=== PATIENT | female | born 1950 | race Hispanic/Latino ===

== ENCOUNTER 2018-12-14 09:39 | Observation (INO) | payer MEDICARE ==
[~2018-12-14] VITALS: Ht 157.5 cm; Wt 73.5 kg
[2018-12-14] MEDS ORDERED: ONDANSETRON HCL INJ 2MG/ML 2ML 2 MG/ML VIAL IV NR (10:20)
[2018-12-14] MEDS ORDERED: SODIUM CHLORIDE 0.9% 1000ML 1,000 ML IV STA (10:20)
--- NOTE | 2018-12-14 11:22 | Diagnostic Imaging Report ---
Examination: CT head without contrast Clinical Indication: Headache. Confusion. Vomiting. Technique: Transaxial noncontrast images from the skull base through the vertex were obtained. Sagittal and coronal reformatted images were done. Dose modulation, iterative reconstruction, and/or weight based adjustment of the mA/kV was utilized to reduce the radiation dose to as low as reasonably achievable. Comparison: None. Findings: Scalp: No abnormalities. Bones: Intact. No fractures. No blastic or lytic lesions. Brain sulci: Appropriate for patient's age. Ventricles: Normal in size and configuration. No hydrocephalus. . Extra-axial space: No abnormalities. Parenchyma: There are subtle patchy areas of low-attenuation within subcortical and periventricular white matter, nonspecific, but could represent microvascular ischemic disease. No masses, hemorrhage, or acute or chronic cortical based vascular insults. Suprasellar region: No abnormalities. Craniocervical junction: The foramen magnum is patent. No Chiari one malformation. Impression: 1. No acute intracranial finding. 2. Mild chronic microvascular ischemic change. Signed by: Dr. Nallely Jarvis M.D. on 12/14/2018 11:18 AM
--- NOTE | 2018-12-14 11:27 | Diagnostic Imaging Report ---
EXAM: CHEST SINGLE (PORTABLE) DATE: 12/14/2018 10:20 AM INDICATION: Hypertension COMPARISON: None FINDINGS: Lines and tubes: None Heart size normal. No focal pulmonary opacity, pleural effusion or pneumothorax. Upper abdomen unremarkable. No acute bony abnormality. IMPRESSION: No evidence for acute disease. Signed by: Dr. Omar Israel M.D. on 12/14/2018 11:24 AM
[2018-12-14 11:32] LABS: BASOPHILS % 0.4 % (0.0-1.0); EOSINOPHILS % 0.3 % (0.0-6.0); HEMATOCRIT 39.8 % (34.2-44.1); HEMOGLOBIN 13.8 g/dL (12.0-16.0); LYMPHOCYTES # (AUTO) 1.1 (1.0-3.2); LYMPHOCYTES % 11.4 % (18.0-39.1); MEAN CORPUSCULAR HEMOGLOBIN 31.6 pg (28-32); MEAN CORPUSCULAR HGB CONC 34.7 g/dL (31-35); MEAN CORPUSCULAR VOLUME 91.1 fL (81-99); MONOCYTES # (AUTO) 0.4 (0.2-0.8); MONOCYTES % 4.3 % (4.4-11.3); NEUTROPHILS # (AUTO) 7.6 (2.1-6.9); NEUTROPHILS % 83.2 % (38.7-80.0); PLATELET COUNT 267 x10e3/uL (140-360); RED BLOOD COUNT 4.37 x10e6/uL (3.6-5.1); RED CELL DISTRIBUTION WIDTH 12.1 % (11.7-14.4)
[2018-12-14 11:41] LABS: BILIRUBIN,URINE NEGATIVE (NEGATIVE); CLARITY,URINE CLEAR (CLEAR); COLOR,URINE YELLOW (YELLOW); KETONES,URINE NEGATIVE (NEGATIVE); LEUKOCYTE ESTERASE ,URINE NEGATIVE (NEGATIVE); NITRITE,URINE NEGATIVE (NEGATIVE); PROTEIN,URINE DIPSTICK NEGATIVE (NEGATIVE); URINE UROBILINOGEN 0.2 mg/dL (0.2 - 1)
[2018-12-14 11:49] LABS: INR 0.95; PROTHROMBIN TIME 13.2 seconds (11.9-14.5)
[2018-12-14 11:50] LABS: PARTIAL THROMBOPLASTIN TIME 27.5 seconds (23.8-35.5)
[2018-12-14 12:00] LABS: ALANINE AMINOTRANSFERASE 16 IU/L (0-55); ALBUMIN 3.9 g/dL (3.5-5.0); ALKALINE PHOSPHATASE 104 IU/L (40-150); AMYLASE 81 U/L (25-125); ANION GAP 13.8 mmol/L (8-16); BLOOD UREA NITROGEN 16 mg/dL (7-26); BUN/CREATININE RATIO 24 (6-25); CALCIUM 9.8 mg/dL (8.4-10.2); CARBON DIOXIDE 27 mmol/L (22-29); CHLORIDE 104 mmol/L (98-107); CREATINE KINASE 47 IU/L (29-168); CREATININE, SERUM 0.66 mg/dL (0.57-1.11); EST GLOMERULAR FILTRATION RATE > 60 ML/MIN (60-); GLUCOSE 112 mg/dL (74-118); LIPASE 36 U/L (8-78); MAGNESIUM 2.3 MG/DL (1.3-2.1); POTASSIUM 3.8 mmol/L (3.5-5.1); SODIUM 141 mmol/L (136-145)
[2018-12-14 12:15] LABS: EPITHELIAL CELLS,URINE FEW /LPF; RBC,URINE 0-5 /HPF (0-5)
[2018-12-14] MEDS ORDERED: ONDANSETRON HCL INJ 2MG/ML 2ML 2 MG/ML VIAL IV PRN (13:30)
--- OUTSIDE RECORDS SUMMARY | 2018-12-14 13:36 | XMS REPORT ---
Author Author [facility] Address Unknown Phone Unavailable Care Team Providers Care Small Business Banking Officer Name Role Phone Angus RICHARDSON Unavailable Unavailable Problems This patient has no known problems. Allergies, Adverse Reactions, Alerts This patient has no known allergies or adverse reactions. Medications This patient has no known medications. Results Test Description Test Time Test Comments Text Results Atomic Results Result Comments CHEST SINGLE (PORTABLE) 2018-12-14 11:22:00 [place] [address] Patient Name: EDITH PATHAK MR #: [id number] : 1950 Age/Sex: 68/F Req #: [id number] Adm Physician: Ordered by: MONA FLORIAN CONSULTING GROUP ANALYST Report #: [id number] Location: ER Room/Bed: Procedure: [id number] DX/CHEST SINGLE (PORTABLE) Exam Date: Exam Time: REPORT STATUS: Signed EXAM: CHEST SINGLE (PORTABLE) DATE: 12/14/2018 10:20 AM INDICATION: Hypertension COMPARISON: None FINDINGS: Lines and tubes: None Heart size normal. No focal pulmonary opacity, pleural effusion or pneumothorax. Upper abdomen unremarkable. No acute bony abnormality. IMPRESSION: No evidence for acute disease. Signed by: Dr. Demarco White M.D. on 12/14/2018 11:24 AM Dictated By: DEMARCO WHITE MD Transcribed By: CINDY on 12/14/184 COPY TO: MONA FLORIAN NP CT BRAIN WO 2018-12-14 11:17:00 [place] [id number] [place] [id number] Patient Name: EDITH PATHAK MR #: [id number] : 1950 Age/Sex: 68/F Req #: [id number] Adm Physician: Ordered by: MONA FLORIAN NP Report #: [id number] Location: ER Room/Bed: Procedure: [id number] CT/CT BRAIN WO Exam Date: Exam Time: REPORT STATUS: Signed Examination: CT head without contrast Clinical Indication: Headache. Confusion. Vomiting. Technique: Transaxial noncontrast images from the skull base through the vertex were obtained. Sagittal and coronal reformatted images were done. Dose modulation, iterative reconstruction, and/or weight based adjustment of the mA/kV was utilized to reduce the radiation dose to as low as reasonably achievable. Comparison: None. Findings: Scalp: No abnormalities. Bones: Intact. No fractures. No blastic or lytic lesions. Brain sulci: Appropriate for patient's age. Ventricles: Normal in size and configuration. No hydrocephalus. . Extra-axial space: No abnormalities. Parenchyma: There are subtle patchy areas of low- attenuation within subcortical and periventricular white matter, nonspecific, but could represent microvascular ischemic disease. No masses, hemorrhage, or acute or chronic cortical based vascular insults. Suprasellar region: No abnormalities. Craniocervical junction: The foramen magnum is patent. No C hiari one malformation. Impression: 1. No acute intracranial finding. 2. Mild chronic microvascular ischemic change. Signed by: Dr. Nallely Jarvis M.D. on 12/14/2018 11:18 AM Dictated By: NALLELY LIMON MD 17 Transcribed By: CINDY on 12/14/181117 COPY TO: MONA FLORIAN NP
--- NOTE | 2018-12-14 17:30 | NUR ---
DR MCLAIN IN ROOM ASSESSING PT
[2018-12-14 18:49] VITALS: BP 159/82
[2018-12-14] MEDS: PROMETHAZINE 25MG/ NS 50ML (IV) IV SCH (19:03)
[2018-12-14] MEDS: METHYLPREDNISOLONE SOD SUCC 125 MG/2ML VIAL IV SCH (19:03)
[2018-12-14] MEDS: SODIUM CHLORIDE 0.9% 1000ML 1,000 ML IV SCH (19:03)
--- NOTE | 2018-12-14 19:06 | Diagnostic Imaging Report ---
History: Vomiting, high blood pressure Comparison studies: Head CT on 12/14/2018 Technique: Sagittal T2; axial DWI, FLAIR, MPGR, T1, Coronal FLAIR. Intravenous contrast: None Findings: Scalp: Normal in signal . No masses . Bone marrow: Normal in signal intensity. Extra-axial: No masses or fluid collections. Brain sulci: Appropriate for age. Ventricles: Normal in size . No hydrocephalus . Parenchyma: A few punctate T2 FLAIR hyperintense foci in the supratentorial white matter are nonspecific small vessel ischemic changes.No masses, hemorrhage, acute or chronic cortical ischemic insults. Suprasellar region: No abnormalities. Craniocervical junction: No abnormalities. Patent foramen magnum. No Chiari one malformation. Vessels: Normal flow-voids in the arteries and sinuses. Incidental mucosal thickening in the maxillary and ethmoid air cells bilaterally. IMPRESSION: 1. No intracranial abnormalities. 2. No changes compared to the head CT done earlier today. 3. Persistent minimal supratentorial white matter vessel ischemic changes. Signed by: Dr. Gordo Dunbar M.D. on 12/14/2018 7:02 PM
--- NOTE | 2018-12-14 19:39 | NUR ---
Got report from previous nurse. call light within reach. Patient in bed. A&O x 3. No pain or distress. Family at bedside.
[2018-12-14 20:00] VITALS: BP 116/71
[2018-12-14 20:47] VITALS: BP 116/71
[2018-12-14] MEDS: VALPROATE SOD INJ 500 MG in SODIUM CHLORIDE 0.9% 100 ML 100 ML IV SCH (21:24)
[2018-12-14] MEDS ORDERED: ALBUTEROL0.63 MG/3 (22:07)
[2018-12-14] MEDS ORDERED: ALENDRONATE SOD35 MG PO (22:12)
[2018-12-14] MEDS ORDERED: BENAZEPRIL-HCT1 EAC1 PO (22:12)
--- NOTE | 2018-12-14 23:41 | Consultation ---
DATE OF CONSULTATION: 12/14/2018 Neurology Consult Note HISTORY OF PRESENT ILLNESS: Ms. Parks is a 68-year-old right-hand dominant woman with past medical history significant for hypertension, bronchitis, and osteoporosis, admitted to [facility] on December 14, 2018, with a headache and dizziness. Ms. Parks describes her headache as follows: The pain is diffuse. It is described as throbbing and rated a 10/10. Associated with the headache are photophobia, phonophobia, nausea, vomiting, and dizziness, which is further described as a vertiginous sensation. Ms. Parks endorses blurred vision affecting both eyes as well. Lastly, the patient reports mild numbness affecting the tongue and lips. Ms. Parks does not report dysarthria, aphasia, facial droop, hemiparesis, poor balance, gait impairment, or confusion associated with the above symptoms. The above described headache and associated symptoms began at approximately 0900 hours on the day of admission. Ms. Parks presented to the emergency center at [facility] at approximately 1000 hours for evaluation of her symptoms. Upon arrival in the emergency center, the patient was afebrile with a blood pressure of 135/63 and a pulse of 67 beats per minute. Her neurological examination was significant for mild to moderate sensory loss over the right side of the face and tongue. Otherwise, no focal neurological deficits were noted. A CT of the brain without contrast was performed, while the patient was in the emergency center. There is no evidence of recent large territorial ischemia or hemorrhage on that study. Ms. Parks was then admitted to [facility] under observation status for further evaluation and treatment of her symptoms. Ms. Parks does not report a current or prior history of headaches. She does have a daughter, who has migraines. REVIEW OF SYSTEMS: Nausea, vomiting, numbness of the tongue and lips, headache, photophobia, phonophobia, dizziness further described as a vertiginous sensation. Otherwise, a 12-point review of systems is negative. PAST MEDICAL HISTORY: Hypertension, bronchitis, osteoporosis, and fracture of the right hand. PAST SURGICAL HISTORY: Cholecystectomy and oophorectomy. PAST HOSPITALIZATIONS: Surgeries/procedures as listed, childbirth x6, food poisoning. FAMILY MEDICAL HISTORY: Hypertension, one sister has dementia. SOCIAL HISTORY: Ms. Parks is . She does not report current or prior tobacco, alcohol, or recreational drug use. HOME MEDICATIONS: One antihypertensive medication, one medication for osteoporosis. ALLERGIES: NO KNOWN DRUG ALLERGIES. NO KNOWN FOOD ALLERGIES. NO KNOWN ALLERGIES TO LATEX. NO KNOWN ALLERGIES TO IODINE OR OTHER CONTRAST MATERIALS. PHYSICAL EXAMINATION: VITAL SIGNS: Height 61 inches, weight 162 pounds, BMI 30.6 kg/m2, blood pressure 135/63 mmHg, pulse 74 beats per minute, respiratory rate 20 breaths per minute, and oxygen saturation 99% on room air. GENERAL: The patient is awake and alert, does not appear distressed. Obese. HEENT: Normocephalic, atraumatic. Pupils are equal, round, and reactive to light. Moist mucous membranes. NECK: Supple. No appreciable thyromegaly. No appreciable carotid bruits. CARDIOVASCULAR: S1, S2, regular rate and rhythm. No murmurs, rubs, or gallops. RESPIRATORY: Clear to auscultation bilaterally. No wheezes, rhonchi, or rales. EXTREMITIES: The skin is warm and dry. No clubbing, cyanosis, or edema. The posterior tibial and dorsalis pedis pulses are 2+ and symmetric. SKIN: No rashes or lesions. NEUROLOGIC: Memory/Attention: The patient is awake and alert, oriented to person, place, time, and situation. Cranial Nerves: Cranial nerve I - not tested. Cranial nerves II, III, IV, and - pupils are equal and round, reactive briskly to light (from 4 mm to 2 mm). Extraocular movements intact. No nystagmus. Cranial nerve V - sensation to light touch and pinprick is intact in the bilateral V1 through V3 distributions. Strength in the temporalis and masseter muscles are within normal limits. Cranial nerve VII - the face is symmetric as are all facial movements. Strength is within normal limits. Cranial nerve VIII - hearing is intact to finger rub bilaterally. Cranial nerves IX, X - the soft palate elevates equally and symmetrically. Cranial nerve XI - normal strength of the bilateral sternocleidomastoid and trapezius muscles. Cranial nerve XII - the tongue protrudes midline and moves symmetrically from [id number]. Strength: Bulk is normal. Strength is 5/5 in the bilateral deltoids, biceps, triceps, wrist flexors and extensors, finger flexors and extensors, intrinsic hand muscles, hip flexors, knee flexors and extensors, ankle dorsiflexion and plantar flexion, and intrinsic foot muscles. Tone is normal. DTRs: Deep tendon reflexes are 1+ and symmetric at the triceps, biceps, brachioradialis, patellas, and Achilles. Plantar responses are flexor bilaterally. Sensation: Sensation is intact to light touch and pinprick in both arms and both legs. Cerebellar: Omoemo-eqtm-pwawpx and heel-otero movements are intact without dysmetria or other impairment. Gait: Deferred. Speech: Spontaneous speech is normal without appreciable dysarthria or aphasia. Repetition is intact. Involuntary Movements: None. Pronator Drift: None. LABORATORY DATA: A comprehensive metabolic panel is unremarkable. Cardiac enzymes are negative x1. Amylase 81. Lipase 36. The CBC with differential and platelets reveals a white blood cell count of 9.20 with a left shift with 83.2% neutrophils, 11.4% lymphocytes, 4.3% monocytes, 0.3% eosinophils, and 0.4% basophils. The hemoglobin and hematocrit are 13.8 and 39.8, respectively. The platelet count is 267. The coagulation profile is within normal limits. A urinalysis was unremarkable. DIAGNOSTIC STUDIES: Chest x-ray on 12/14/2018: No evidence for acute disease. CT of the brain without contrast on 12/14/2018: On my review, there is no evidence of recent or remote large territorial ischemia, hemorrhage, mass, or mass effect. Cerebral volumes are appropriate for age. Their findings compatible with [id number] chronic small-vessel ischemic disease. ASSESSMENT AND PLAN: Ms. Parks is a 68-year-old right-hand dominant woman with past medical history significant for hypertension, admitted to [facility] on December 14, 2018, with migraine with probable aura. The patient's neurological examination is nonfocal. Her laboratory data and other diagnostic studies have been reviewed and are documented above. RECOMMENDATIONS: Are as follows: 1. An MRI of the brain without contrast has been performed. The images are not available for review at this time. Follow up the results of the MRI of the brain without contrast. 2. The patient will be treated with a migraine cocktail in an effort to break her current headache cycle. Promethazine 25 mg intravenously every 6 hours x2 doses will be prescribed. 3. Methylprednisolone 125 mg intravenously every 6 hours x2 doses will be prescribed. 4. Valproate 500 mg intravenously every 6 hours x2 doses will be prescribed. 5. Defer treatment of the remaining medical comorbidities to the primary and other services following the patient. Thank you for this consultation. I will continue to follow the patient, while she remains in the hospital. TIME SPENT: 50 minutes. Lea Sharp MD CP/FERNANDA /[id number] MTDD
[2018-12-15 00:25] VITALS: BP 127/62
[2018-12-15] MEDS: METHYLPREDNISOLONE SOD SUCC 125 MG/2ML VIAL IV SCH (00:57)
[2018-12-15] MEDS: PROMETHAZINE 25MG/ NS 50ML (IV) IV SCH (00:57)
[2018-12-15] MEDS: VALPROATE SOD INJ 500 MG in SODIUM CHLORIDE 0.9% 100 ML 100 ML IV SCH (03:19)
[2018-12-15 03:21] LABS: BASOPHILS % 0.2 % (0.0-1.0); EOSINOPHILS # (AUTO) 0.1 (0.0-0.4); EOSINOPHILS % 2.2 % (0.0-6.0); HEMATOCRIT 35.6 % (34.2-44.1); HEMOGLOBIN 12.2 g/dL (12.0-16.0); LYMPHOCYTES # (AUTO) 0.7 (1.0-3.2); LYMPHOCYTES % 11.3 % (18.0-39.1); MEAN CORPUSCULAR HEMOGLOBIN 31.2 pg (28-32); MEAN CORPUSCULAR HGB CONC 34.3 g/dL (31-35); MONOCYTES % 0.5 % (4.4-11.3); NEUTROPHILS # (AUTO) 5.1 (2.1-6.9); NEUTROPHILS % 85.5 % (38.7-80.0); PLATELET COUNT 228 x10e3/uL (140-360); RED BLOOD COUNT 3.91 x10e6/uL (3.6-5.1); RED CELL DISTRIBUTION WIDTH 12.3 % (11.7-14.4)
[2018-12-15 03:38] LABS: ANION GAP 10.6 mmol/L (8-16); BLOOD UREA NITROGEN 14 mg/dL (7-26); BUN/CREATININE RATIO 22 (6-25); CARBON DIOXIDE 24 mmol/L (22-29); CHLORIDE 108 mmol/L (98-107); CHOL/HDL RATIO 3.1 (3.0-3.6); CHOLESTEROL 147 MD/DL (0-199); CREATININE, SERUM 0.63 mg/dL (0.57-1.11); EST GLOMERULAR FILTRATION RATE > 60 ML/MIN (60-); GLUCOSE 150 mg/dL (74-118); HDL CHOLESTEROL 47 MG/DL (40-60); LDL CHOLESTEROL 90 MG/DL (60-130); POTASSIUM 3.6 mmol/L (3.5-5.1); SODIUM 139 mmol/L (136-145); TRIGLYCERIDES 52 MG/DL (0-149)
[2018-12-15 03:55] LABS: THYROID STIMULATING HORMONE 0.181 uIU/mL (0.350-4.940)
[2018-12-15 05:19] VITALS: BP 124/55
[2018-12-15] MEDS: SODIUM CHLORIDE 0.9% 1000ML 1,000 ML IV SCH (05:30)
--- NOTE | 2018-12-15 05:45 | NUR ---
Called Dr. Becerril office because family wanted to know why the patient is on an ADA diet when she is not a diabetic. FAB Jacobs was told the HgA1C and ordered the diet to be changed to Regular diet.
--- NOTE | 2018-12-15 07:19 | NUR ---
GAVE REPORT TO ONCOMING NURSE. CALL LIGHT WITHIN REACH. PATIENT IN BED. PATIENT IN NO PAIN OR DISTRESS.
[2018-12-15 07:44] VITALS: BP 129/61
[2018-12-15] MEDS ORDERED: ACETAMINOPHEN 325 MG TAB PO PRN (09:00)
[2018-12-15] MEDS ORDERED: HYDRALAZINE HCL 20 MG/ML VIAL IV PRN (09:00)
[2018-12-15] MEDS ORDERED: ONDANSETRON HCL INJ 2MG/ML 2ML 2 MG/ML VIAL IV PRN (09:00)
[2018-12-15 09:11] LABS: LYMPHOCYTES % (MANUAL) 10 % (19-48); MONOCYTES % (MANUAL) 4 % (3.4-9.0); NEUTROPHILS % (MANUAL) 86 % (40-74)
[2018-12-15 09:12] LABS: PLATELET ESTIMATE ADEQUATE; PLATELET MORPHOLOGY COMMENT NORMAL; RBC MORPHOLOGY COMMENT NORMAL
[2018-12-15 11:39] VITALS: BP 115/50
[2018-12-15 15:37] VITALS: BP 159/81
[2018-12-15] MEDS: FAMOTIDINE 20 MG TAB PO SCH (17:31)
--- NOTE | 2018-12-15 18:50 | NUR ---
Got report from previous nurse. Call light within reach. A&Ox3. Patient in bed. Family at bedside
[2018-12-15 20:10] VITALS: BP 128/55
--- NOTE | 2018-12-15 20:51 | Consultation ---
DATE OF CONSULTATION: 12/15/2018 Endocrine Consultation The patient of Dr. Becerril. Thank you very much for referring this patient. HISTORY OF PRESENT ILLNESS: This is a 68-year-old lady, who was referred to me for evaluation of abnormal thyroid function test. The patient does not have history of any major thyroid problems in the past. She came to the hospital with history of severe headache and some left-sided paresthesias on the face. She has history of hypertension and obesity. No history of any thyroid problems in the past. On further evaluation during the hospital stay, her TSH was found to be on the lower side 0.181 and the T4 is 10.56. No family history of thyroid disease. She has been also having some nausea and vomiting at the time of admission. PHYSICAL EXAMINATION: GENERAL: Today, the patient is alert, awake, little bit apprehensive. She is moderately overweight. VITAL SIGNS: Her heart rate is around 78 and blood pressure is 134/80 mmHg. HEENT: Essentially unremarkable. Thyroid is palpable. Clinically, she looks near euthyroid. CHEST: Bilateral vesicular breathing. She has mild bronchospasm. CARDIAC: First and second heart sounds. There is no third or fourth heart sound . IMPRESSION: Abnormal thyroid function tests, rule out hyperthyroidism with low TSH, migraine headaches, and right facial paresthesia. PLAN: The plan at this time is to do a free T3, free T4, TSH, and antiperoxidase antibody. Thank you again for referring this patient. I will be following this patient with you. MD OXANA Crouch/FERNANDA /[id number]
[2018-12-16] VITALS (7 sets, daily range): BP systolic 104–143; BP diastolic 51–68
[2018-12-16 03:34] LABS: BASOPHILS % 0.1 % (0.0-1.0); EOSINOPHILS % 0.1 % (0.0-6.0); HEMATOCRIT 33.6 % (34.2-44.1); HEMOGLOBIN 11.5 g/dL (12.0-16.0); LYMPHOCYTES # (AUTO) 2.1 (1.0-3.2); LYMPHOCYTES % 17.7 % (18.0-39.1); MEAN CORPUSCULAR HEMOGLOBIN 31.6 pg (28-32); MEAN CORPUSCULAR HGB CONC 34.2 g/dL (31-35); MEAN CORPUSCULAR VOLUME 92.3 fL (81-99); MONOCYTES # (AUTO) 0.9 (0.2-0.8); MONOCYTES % 7.4 % (4.4-11.3); NEUTROPHILS # (AUTO) 8.6 (2.1-6.9); NEUTROPHILS % 74.2 % (38.7-80.0); PLATELET COUNT 210 x10e3/uL (140-360); RED BLOOD COUNT 3.64 x10e6/uL (3.6-5.1); RED CELL DISTRIBUTION WIDTH 12.4 % (11.7-14.4)
[2018-12-16 03:48] LABS: ANION GAP 11.7 mmol/L (8-16); BUN/CREATININE RATIO 31 (6-25); CALCIUM 8.8 mg/dL (8.4-10.2); CARBON DIOXIDE 21 mmol/L (22-29); CHLORIDE 112 mmol/L (98-107); EST GLOMERULAR FILTRATION RATE > 60 ML/MIN (60-); GLUCOSE 113 mg/dL (74-118); MAGNESIUM 2.3 MG/DL (1.3-2.1); POTASSIUM 3.7 mmol/L (3.5-5.1); SODIUM 141 mmol/L (136-145)
[2018-12-16 03:56] LABS: BLOOD UREA NITROGEN 22 mg/dL (7-26)
--- NOTE | 2018-12-16 07:24 | NUR ---
Gave report to oncoming nurse. Patient A&Ox3. Call light within reach. Patient in bed.
[2018-12-16] MEDS ORDERED: LORATADINE10 MG PO (07:38)
[2018-12-16] MEDS ORDERED: MUCINEX DM ER1 EACH PO (07:38)
[2018-12-16] MEDS ORDERED: ZITHROMAX500 MG PO (07:38)
--- NOTE | 2018-12-16 07:40 | NUR ---
Mary Plata, CHILD CUSTODY EVALUATOR rounding at the bedside. POC given in Lithuanian and all questions answered by CHILD CUSTODY EVALUATOR. Bed in lowest position, locked and call rodríguez within reach.
[2018-12-16] MEDS ORDERED: AZITHROMYCIN 500MG/NS 250 ML 250 ML IV SCH (07:45)
[2018-12-16] MEDS ORDERED: LORATADINE 10 MG TAB PO SCH (09:00)
[2018-12-16] MEDS: FAMOTIDINE 20 MG TAB PO SCH ×2 (09:00→17:16)
[2018-12-16] MEDS: GUAIFENESIN 600MG/DEXTROMETHORPHAN 30MG TABSR PO SCH ×2 (09:06→17:16)
--- NOTE | 2018-12-16 10:11 | Diagnostic Imaging Report ---
EXAM: CHEST SINGLE (PORTABLE), AP Portable DATE: 12/16/2018 Time stamp on exam: 9:35 AM INDICATION: Dizziness COMPARISON: None FINDINGS: LINES/TUBES: None LUNGS: No consolidations or edema. PLEURA: No effusions or pneumothorax. HEART AND MEDIASTINUM: Normal size and contour. BONES AND SOFT TISSUES: No acute findings. IMPRESSION: No acute thoracic abnormality. Signed by: Dr. Rancho Julien DO on 12/16/2018 10:07 AM
--- NOTE | 2018-12-16 15:00 | NUR ---
Per Dr. Newman patient may go home and needs to follow up in 10 days. Daughter and patient aware.
--- NOTE | 2018-12-16 18:15 | NUR ---
Patient discharged home with written instructions and prescription. Daughters and patient verbalized understanding.
--- NOTE | 2018-12-18 07:07 | Discharge Summary ---
HOSPITAL COURSE: The patient admitted with a migraine. On admission, the patient had a CT of the brain, which was negative. Neurology was consulted, who gave the patient a cocktail of promethazine and valproate. The headache improved after the cocktail. Then, the patient was found to have a low TSH. She also admits to weight loss and trouble sleeping, so Endocrinology was consulted. Endocrinology did a workup and said the patient can follow up outpatient. On day of discharge, the patient complained of congestion, so chest x-ray was done, which was negative. The patient was given a Z-Terrance, Mucinex, and Claritin. The patient will follow up with primary care in 1 to 2 weeks. The patient was discharged per Neurology and Endocrinology. The patient and family understand discharge instructions and agreed to plan. Vital signs stable. The patient afebrile. Dictated by Mary Plata NP MD LUCY Calles/FERNANDA /[id number]
== END 2018-12-16 18:05 | disposition home or self-care (01) ==
LOC: ER 09:39 → ERHOLD 13:18 → IMCU 18:05
PROVIDERS: ADMIT Internal Medicine; ATTEND Internal Medicine
DX: G43.109 Migraine with aura, not intractable, without status migrainosus (principal); R20.2 Paresthesia of skin; R11.10 Vomiting, unspecified; I10 Essential (primary) hypertension; E66.9 Obesity, unspecified; Z68.29 Body mass index [BMI] 29.0-29.9, adult; Z82.49 Family history of ischemic heart disease and other diseases of the circulatory system; R11.2 Nausea with vomiting, unspecified; M81.0 Age-related osteoporosis without current pathological fracture; Z83.3 Family history of diabetes mellitus; Z90.49 Acquired absence of other specified parts of digestive tract; Z90.721 Acquired absence of ovaries, unilateral; R42 Dizziness and giddiness; R94.6 Abnormal results of thyroid function studies
CPT/HCPCS: 36415 ×3; 70450; 70551; 71045 ×2; 80048 ×2; 80053; 80061; 81001; 82150; 82550; 82553; 83036; 83690; 83735 ×2; 83880 ×2; 84436; 84439; 84443; 84481; 84484; 85025 ×3; 85610; 85730; 87086; 93005; 93306; 93880; 99284; G0378 ×3; J0456; J2405; J2550 ×2; J2930 ×2; J7030 ×2